=== PATIENT | male | born 1955 ===

== ENCOUNTER 2017-03-10 08:10 | Day surgery (SDC) | payer BC ==
[2017-03-10] MEDS ORDERED: Lactated Ringer's 500 ML IV ONE (08:24)
[2017-03-10] MEDS ORDERED: Midazolam 2 MG/2 ML VIAL ONE (09:12)
[2017-03-10] MEDS ORDERED: ePHEDrine 50 mg/ml Inj ONE (09:13)
[2017-03-10] MEDS ORDERED: Propofol 10 mg/ml Inj (20 ML) ONE (09:13)
[2017-03-10 10:37] VITALS: O2SAT 100
[2017-03-10 10:51] VITALS: BP 101/74; PULSE 58; RESP 18; TEMP 96.9
== END 2017-03-10 13:44 | disposition home or self-care (01) ==
LOC: H.ENDO 08:10
PROVIDERS: ATTEND Internal Medicine Gastroenterology
DX: Z12.11 Encounter for screening for malignant neoplasm of colon (principal); K64.1 Second degree hemorrhoids
CPT/HCPCS: 45378; J2001; J2250; J2704; J7120